=== PATIENT | female | born 1970 | race Caucasian/White ===

== ENCOUNTER 2023-01-06 11:05 | Outpatient (AMB) | payer OTHER, SELFPAY ==
--- NOTE | 2023-01-06 11:10 | MHC.OFFVIS ---
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 States she is having numbness and tingling in base of her left thumb. Has shooting pain around her CMC joint and into palm area. Has difficulty pinching, grabbing and twisting of hand. No EMG done. Also states she as a growing lump at the base of her left ring finger and feels like another one is growing in her right hand base of her ring finger. 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 She complains of pain and numbness at the base of her left thumb. She has difficulty with pinching, gripping, grabbing and twisting activities. She says the pain is shooting and radiates into her palm. She complains of limited ROM and weakness in her hand, and says holding glasses at home or riding a bicycle causes her pain and is very difficult. She also complains of a painful lump proximal to the A1 tanika at the base of her left ring finger, and she is worried she is developing a similar lump in her right palm. She also complains of occasional numbness in her hands, which primarily occurs at night but this may also be related to her pain and she is unsure. She denies any NCS. She says she had a TKA performed last year. 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 Review of Systems Const All systems reviewed & are unremarkable except as noted in HPI and below Physical Exam Vital Signs: BMI result Body Mass Index 28.7 Const General: cooperative, healthy appearing and no acute distress Orientation/consciousness: patient oriented x3 HEENT Head: Yes normocephalic and Yes atraumatic Eyes EOM: EOMs intact bilaterally Resp Effort & Inspection: normal respiratory effort and able to speak in complete sentences Cardio Jugular venous distension: no JVD Skin General skin exam: turgor normal Rashes: no rashes Neuro General: patient oriented x3 Extrem Other: Evaluation of Left Upper Extremity: The patient is alert, oriented, and in no acute distress Neuro: Median, Ulnar, Radial nerves motor and sensory intact and sensation is normal to the tips of all digits No thenar or intrinsic wasting Good APB muscle belly firing and good finger cross Vascular: Cap refill brisk ROM: She can make a fist and extend all her digits No locking or catching Skin: No lacerations or abrasions. General: No Ecchymosis. No Erythema or evidence of infection. 5/10 tenderness at the basal joint + Shoulder sign + CMC grind 2/10 tenderness at the MCP joint No ligamentous instability at the MCP joint No tenderness over the a1 tanika No locking and catching There is a Dupuytrens nodule in line with the left ring finger, just proximal to the distal palmar crease. This measures ~8mm in diameter There is a smaller Dupuytrens nodule near the a1 tanika of the right ring finger No Dupuytrens cord or contractures Radiographs: 3 views of the left hand were taken and viewed by me today in clinic. They show no fractures or dislocations. She has some basal joint osteoarthritis with joint space narrowing and subluxation. The STT joint appears to be in good condition. Psych Appearance: grossly normal Affect: normal affect Attitude: cooperative Assessment & Plan Assessment & Plan (1) Osteoarthritis of carpometacarpal (CMC) joint of left thumb: Code(s): M18.12 - Unilateral primary osteoarthritis of first carpometacarpal joint, left hand (2) Dupuytren's disease of palm of left hand: Code(s): M72.0 - Palmar fascial fibromatosis [Dupuytren] (3) Dupuytren's disease of palm of right hand: Code(s): M72.0 - Palmar fascial fibromatosis [Dupuytren] Plan Assessment & Plan: 1. Left basal joint osteoarthritis I educated her about this condition I discussed operative and non-operative treatment options, including injections I recommend bracing and activity modification. i do not recommend an injection at this time I discussed activity modification, she is to limit or avoid any heavy or repetitive pinching or gripping activities She was fitted for a comfort cool brace to wear with daily activity I ordered OT hand therapy to work on normalizing hand function and activity modification She can follow up prn If her symptoms persist or worsen she can return to discuss treatment, including injections 2. Left Dupuytren's nodule ~8mm in diameter In line with the left ring finger, just proximal to the distal palmar crease No Dupuytren's cord or contractures 3. Right Dupuytren's nodule Near the a1 tanika of the ring finger No Dupuytren's cord or contractures I educated her about Dupuytren's nodules in Dupuytren's disease. No treatment is indicated at this time. Patient had many questions, and all questions were answered today in clinic. Scribed for Jagruti Rodrigues MD by Ayaan Herring, medical observer, on 01/06/23 at 12:30 PM, EST. Orders: Orders XR hand LT min 3V Today M79.642 - Pain in left hand OT Evaluation and Treatment Today M18.12 - Unilateral primary osteoarthritis of first carpometacarpal joint, left hand, M72.0 - Palmar fascial fibromatosis [Dupuytren] Coding Level of Care Code New Pt Level 4 (87102) Diagnoses Osteoarthritis of carpometacarpal (CMC) joint of left thumb M18.12 Dupuytren's disease of palm of left hand M72.0 Dupuytren's disease of palm of right hand M72.0
[2023-01-06 11:14] VITALS: BMI 28.7
== END 2023-01-06 12:49 | disposition home or self-care (01) ==
PROVIDERS: PCP Family Medicine; Visit Provider Orthopaedic Surgery
DX: M18.12 Unilateral primary osteoarthritis of first carpometacarpal joint, left hand (principal); M72.0 Palmar fascial fibromatosis [Dupuytren]
CPT/HCPCS: 99203

== ENCOUNTER 2023-01-06 11:05 | Outpatient (REF) | payer OTHER, SELFPAY ==
--- NOTE | ~2023-01-06 | XR_ITS ---
EXAMINATION: XR HAND, LEFT CLINICAL INFORMATION: Pain COMPARISON: None available. TECHNIQUE: PA, lateral, and oblique views of the left hand. FINDINGS: No acute visible fracture or dislocation. Multi joint arthritic changes. Joint spaces and alignment are otherwise maintained. Soft tissues are unremarkable. XR/XR hand LT min 3V IMPRESSION: 1. No acute visible fracture or dislocation. 2. Multi joint arthritic changes.
== END 2023-01-06 11:06 | disposition home or self-care (01) ==
LOC: HO.HOSX 11:05
PROVIDERS: PCP Family Medicine; Visit Provider Orthopaedic Surgery
DX: M18.12 Unilateral primary osteoarthritis of first carpometacarpal joint, left hand (principal); M72.0 Palmar fascial fibromatosis [Dupuytren]
CPT/HCPCS: 73130

== ENCOUNTER 2024-10-09 18:42 | Emergency (ER) | payer OTHER, SELFPAY ==
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
[2024-10-09 18:46] VITALS: BP 121/85; PULSE 72; RESP 18; TEMP 36.4; O2SAT 97; BMI 29.8
[2024-10-09 22:11] VITALS: BP 126/84; PULSE 76; RESP 18; TEMP 36.6; O2SAT 98
[2024-10-10 00:33] VITALS: BP 126/84; PULSE 76; RESP 18; TEMP 36.6; O2SAT 98
[2024-10-10] MEDS: Lidocaine HCl 1 % MPF 5 ML VIAL INFILTRATI (00:33)
[2024-10-10] MEDS: Bacitracin Oint 0.9 GM PACKET 1 APPL TOPICAL (00:33)
== END 2024-10-10 00:34 | disposition home or self-care (01) ==
PROVIDERS: Emergency Provider Emergency Medicine; PCP Family Medicine
DX: S01.81XA Laceration without foreign body of other part of head, initial encounter (principal); S60.051A Contusion of right little finger without damage to nail, initial encounter; V13.0XXA Pedal cycle driver injured in collision with car, pick-up truck or van in nontraffic accident, initial encounter; Y93.55 Activity, bike riding; Y92.414 Local residential or business street as the place of occurrence of the external cause; Y99.9 Unspecified external cause status
CPT/HCPCS: 12011; 73130; 99284; J2003

== ENCOUNTER → 2024-10-09 18:47 | Outpatient (BNV) | payer OTHER, SELFPAY | PROVIDERS: PCP Family Medicine; Visit Provider Radiology Diagnostic Radiology | DX: M79.644 Pain in right finger(s) (principal); W23.1XXA Caught, crushed, jammed, or pinched between stationary objects, initial encounter | CPT/HCPCS: 73130 ==